=== PATIENT | female | born 1995 | race Hispanic/Latino ===

== ENCOUNTER 2022-11-19 20:09 | Inpatient (IN) | payer OTHER ==
[~2022-11-19] VITALS: Ht 162.6 cm; Wt 95.3 kg
[2022-11-19 21:03] VITALS: BP 136/83
[2022-11-19] MEDS ORDERED: MICARDIS40 MG PO (22:03)
[2022-11-19] MEDS ORDERED: JENCYCLA0.35 MG PO (22:05)
[2022-11-19] MEDS ORDERED: HYDRALAZINE HCL 20 MG/ML VIAL IV PRN (22:15)
[2022-11-19] MEDS ORDERED: DOCUSATE SODIUM 100 MG CAP PO PRN (22:15)
[2022-11-19] MEDS ORDERED: HYDROCODONE/APAP 5MG-325MG TAB PO PRN (22:15)
[2022-11-19] MEDS ORDERED: BENZONATATE 100 MG CAP PO PRN (22:15)
[2022-11-19] MEDS ORDERED: LIDOCAINE 4% PATCH TP PRN (22:15)
[2022-11-19] MEDS ORDERED: POTASSIUM CHLORIDE 20 MEQ TAB CR PO PRN (22:15)
[2022-11-19] MEDS ORDERED: MELATONIN 5 MG TABLET PO PRN (22:15)
[2022-11-19] MEDS ORDERED: ALBUTEROL/IPRATROPIUM 3 ML NEB NEB PRN (22:15)
[2022-11-19] MEDS ORDERED: IBUPROFEN 600 MG TAB PO PRN (22:15)
[2022-11-19] MEDS ORDERED: SIMETHICONE 80 MG CHEW PO PRN (22:15)
[2022-11-19] MEDS ORDERED: DEXTROSE 50% SYRINGE 50 ML IV PRN (22:15)
[2022-11-19] MEDS ORDERED: ONDANSETRON HCL INJ 2MG/ML 2ML 2 MG/ML VIAL IV PRN (22:15)
[2022-11-19] MEDS ORDERED: Morphine 2mg Syringe 2 MG/ML SYR IV PRN (22:15)
[2022-11-19] MEDS ORDERED: DIPHENHYDRAMINE HCL 25 MG CAP PO PRN (22:15)
[2022-11-19 22:28] VITALS: BP 136/83
[2022-11-20] VITALS: BP 128/77
[2022-11-20] MEDS ORDERED: DIPHENHYDRAMINE HCL 25 MG CAP PO PRN (00:15)
[2022-11-20 00:23] LABS: BASOPHILS % 0.2 % (0.0-1.0); EOSINOPHILS % 0.1 % (0.0-6.0); HEMATOCRIT 36.6 % (34.2-44.1); HEMOGLOBIN 11.5 g/dL (12.0-16.0); LYMPHOCYTES # (AUTO) 1.4 (1.0-3.2); LYMPHOCYTES % 7.9 % (18.0-39.1); MEAN CORPUSCULAR HGB CONC 31.4 g/dL (31-35); MEAN CORPUSCULAR VOLUME 95.6 fL (81-99); MONOCYTES # (AUTO) 1.2 (0.2-0.8); MONOCYTES % 6.8 % (4.4-11.3); NEUTROPHILS % 84.5 % (38.7-80.0); PLATELET COUNT 211 x10e3/uL (140-360); RED BLOOD COUNT 3.83 x10e6/uL (3.6-5.1); RED CELL DISTRIBUTION WIDTH 12.7 % (11.7-14.4)
[2022-11-20] MEDS: DEXTROSE 5%/0.9% SOD CHL 1,000 ML IV SCH ×3 (00:24→14:15)
[2022-11-20] MEDS: ACETAMINOPHEN 325 MG TAB PO PRN ×2 (00:27→13:11)
[2022-11-20 00:39] LABS: ALBUMIN 3.2 g/dL (3.5-5.0); CREATININE, SERUM 0.67 mg/dL (0.57-1.11)
[2022-11-20 04:00] VITALS: BP 118/72
[2022-11-20 04:51] LABS: CLARITY,URINE CLOUDY (CLEAR); COLOR,URINE AMBER (YELLOW); KETONES,URINE 2+ (NEGATIVE); LEUKOCYTE ESTERASE ,URINE NEGATIVE (NEGATIVE); NITRITE,URINE NEGATIVE (NEGATIVE); PROTEIN,URINE DIPSTICK 1+ (NEGATIVE); URINE UROBILINOGEN 0.2 mg/dL (0.2 - 1)
[2022-11-20 04:57] LABS: AMORPHOUS SEDIMENT,URINE FEW (FEW); BACTERIA,URINE FEW /HPF; EPITHELIAL CELLS,URINE RARE /LPF; RBC,URINE >50 /HPF (0-5)
[2022-11-20 05:35] LABS: BASOPHILS % 0.1 % (0.0-1.0); EOSINOPHILS % 0.1 % (0.0-6.0); HEMATOCRIT 35.9 % (34.2-44.1); HEMOGLOBIN 10.8 g/dL (12.0-16.0); LYMPHOCYTES # (AUTO) 1.6 (1.0-3.2); LYMPHOCYTES % 10.5 % (18.0-39.1); MEAN CORPUSCULAR HEMOGLOBIN 29.3 pg (28-32); MEAN CORPUSCULAR HGB CONC 30.1 g/dL (31-35); MEAN CORPUSCULAR VOLUME 97.3 fL (81-99); MONOCYTES # (AUTO) 1.2 (0.2-0.8); MONOCYTES % 8.2 % (4.4-11.3); NEUTROPHILS # (AUTO) 11.9 (2.1-6.9); NEUTROPHILS % 80.7 % (38.7-80.0); PLATELET COUNT 201 x10e3/uL (140-360); RED BLOOD COUNT 3.69 x10e6/uL (3.6-5.1); RED CELL DISTRIBUTION WIDTH 13.1 % (11.7-14.4)
[2022-11-20] MEDS: METRONIDAZOLE 500MG/NS 100ML 100 ML IV SCH ×3 (05:39→21:07)
[2022-11-20 06:02] LABS: ANION GAP 13.8 mmol/L (8-16); CALCIUM 7.8 mg/dL (8.4-10.2); CREATININE, SERUM 0.75 mg/dL (0.57-1.11); MAGNESIUM 1.9 MG/DL (1.3-2.1); POTASSIUM 3.8 mmol/L (3.5-5.1)
[2022-11-20] MEDS: PANTOPRAZOLE SOD 40 MG TABEC PO SCH (07:30)
[2022-11-20 07:34] VITALS: BP 115/69
[2022-11-20 07:56] VITALS: BP 115/69
[2022-11-20 11:24] VITALS: BP 110/70
[2022-11-20] MEDS ORDERED: POVIDONE IODINE 0.05% 0.05 % ML PO ONE (12:33)
[2022-11-20] MEDS ORDERED: NEOSTIGMINE 1 MG/ML 10ML VIAL ONE (12:33)
[2022-11-20] MEDS ORDERED: LIDOCAINE HCL 2% LOCAL INJ 5 ML SDV VIAL INJ ONE (12:33)
[2022-11-20] MEDS ORDERED: SEVOFLURANE INHAL SOLN 250 ML PEN BTL ONE (12:33)
[2022-11-20] MEDS ORDERED: ROCURONIUM BROMIDE 10 MG/ML 5ML VIAL IV ONE (12:33)
[2022-11-20] MEDS ORDERED: GLYCOPYRROLATE INJ 0.2 MG/ML VIAL ONE (12:33)
[2022-11-20] MEDS ORDERED: PROPOFOL IV EMULSION 10 MG/ML 20 ML VIAL ONE (12:33)
[2022-11-20] MEDS ORDERED: ONDANSETRON HCL INJ 2MG/ML 2ML 2 MG/ML VIAL ONE (12:33)
[2022-11-20] MEDS ORDERED: DEXAMETHASONE SOD PHOS INJ 4 MG/ML SDV ONE (12:33)
[2022-11-20] MEDS ORDERED: KETOROLAC TROMETHAMINE 30 MG/ML VIAL ONE (12:33)
[2022-11-20] MEDS ORDERED: FENTANYL CITRATE/PF 100MCG/2 ML INJ ONE (13:09)
[2022-11-20] MEDS ORDERED: MIDAZOLAM HCL 2 MG/2 ML VIAL ONE (13:09)
[2022-11-20] MEDS ORDERED: BUPIVACAINE HCL 0.5% INJ 30 ML VIAL INJ ONE (13:52)
[2022-11-20] MEDS ORDERED: KETOROLAC TROMETHAMINE 30 MG/ML VIAL IV PRN (15:30)
[2022-11-20] MEDS ORDERED: HYDROCODONE/APAP 7.5MG-325MG 1 EA TAB PO PRN (15:30)
[2022-11-20] MEDS ORDERED: HYDROMORPHONE 1MG/1ML INJ IV PRN (15:30)
[2022-11-21] MEDS: DEXTROSE 5%/0.9% SOD CHL 1,000 ML IV SCH ×2 (00:40→06:15)
[2022-11-21 04:59] LABS: BASOPHILS % 0.1 % (0.0-1.0); HEMATOCRIT 34.8 % (34.2-44.1); HEMOGLOBIN 10.6 g/dL (12.0-16.0); LYMPHOCYTES # (AUTO) 0.7 (1.0-3.2); LYMPHOCYTES % 3.6 % (18.0-39.1); MEAN CORPUSCULAR HEMOGLOBIN 29.4 pg (28-32); MEAN CORPUSCULAR HGB CONC 30.5 g/dL (31-35); MEAN CORPUSCULAR VOLUME 96.7 fL (81-99); NEUTROPHILS # (AUTO) 17.4 (2.1-6.9); NEUTROPHILS % 90.8 % (38.7-80.0); PLATELET COUNT 195 x10e3/uL (140-360); RED CELL DISTRIBUTION WIDTH 12.6 % (11.7-14.4)
[2022-11-21 05:19] LABS: ANION GAP 13.1 mmol/L (8-16); CALCIUM 8.1 mg/dL (8.4-10.2); CREATININE, SERUM 0.69 mg/dL (0.57-1.11); POTASSIUM 4.1 mmol/L (3.5-5.1)
[2022-11-21] MEDS: METRONIDAZOLE 500MG/NS 100ML 100 ML IV SCH ×3 (05:22→21:38)
[2022-11-21 07:31] VITALS: BP 128/79
[2022-11-21] MEDS: PANTOPRAZOLE SOD 40 MG TABEC PO SCH (08:58)
[2022-11-21] MEDS: TELMISARTAN 40 MG TAB PO SCH (08:59)
[2022-11-21 11:08] VITALS: BP 151/93
[2022-11-21 15:26] VITALS: BP 128/83
[2022-11-21 20:00] VITALS: BP 121/81
[2022-11-21] MEDS: ACETAMINOPHEN 325 MG TAB PO PRN (20:18)
[2022-11-21] MEDS ORDERED: ENOXAPARIN SOD INJ 40 MG/0.4 ML SYR SC STA (20:48)
[2022-11-21 20:59] VITALS: BP 121/81
[2022-11-21] MEDS ORDERED: FUROSEMIDE INJ 10 MG/ML 4 ML VIAL IV ONE (21:00)
[2022-11-22 05:04] LABS: BASOPHILS % 0.1 % (0.0-1.0); EOSINOPHILS % 0.1 % (0.0-6.0); HEMATOCRIT 32.3 % (34.2-44.1); LYMPHOCYTES # (AUTO) 2.5 (1.0-3.2); LYMPHOCYTES % 18.4 % (18.0-39.1); MEAN CORPUSCULAR HEMOGLOBIN 29.5 pg (28-32); MEAN CORPUSCULAR VOLUME 95.3 fL (81-99); MONOCYTES % 6.9 % (4.4-11.3); NEUTROPHILS # (AUTO) 10.2 (2.1-6.9); NEUTROPHILS % 74.2 % (38.7-80.0); PLATELET COUNT 217 x10e3/uL (140-360); RED BLOOD COUNT 3.39 x10e6/uL (3.6-5.1); RED CELL DISTRIBUTION WIDTH 12.8 % (11.7-14.4)
[2022-11-22 05:20] LABS: ANION GAP 14.2 mmol/L (8-16); CREATININE, SERUM 0.63 mg/dL (0.57-1.11); POTASSIUM 3.2 mmol/L (3.5-5.1)
[2022-11-22] MEDS: METRONIDAZOLE 500MG/NS 100ML 100 ML IV SCH ×2 (05:22→13:08)
[2022-11-22 08:00] VITALS: BP 116/76
[2022-11-22] MEDS: PANTOPRAZOLE SOD 40 MG TABEC PO SCH (08:28)
[2022-11-22] MEDS: TELMISARTAN 40 MG TAB PO SCH (08:58)
[2022-11-22] MEDS ORDERED: FUROSEMIDE INJ 10 MG/ML 4 ML VIAL IV SCH (09:00)
[2022-11-22] MEDS ORDERED: SODIUM CHLORIDE 0.9% 250ML 250 ML ONE (09:20)
[2022-11-22] MEDS ORDERED: POTASSIUM CHLORIDE 20 MEQ TAB CR PO ONE (09:30)
[2022-11-22 10:05] VITALS: BP 116/76
[2022-11-22 11:44] VITALS: BP 126/83
[2022-11-22 15:40] VITALS: BP 131/79
[2022-11-22] MEDS ORDERED: ENOXAPARIN SOD INJ 60 MG/0.6 ML SYR SC SCH (17:00)
[2022-11-22] MEDS ORDERED: FLAGYL375 MG PO (18:03)
[2022-11-22] MEDS ORDERED: CEFDINIR300 MG PO (18:03)
== END 2022-11-22 18:23 | disposition home or self-care (01) | DRG 854 ==
LOC: MED/SURG2 20:55 → UNDODISIN 21:02
PROVIDERS: ADMIT Internal Medicine; ATTEND Internal Medicine
PROC: 0DTJ4ZZ Resection of Appendix, Percutaneous Endoscopic Approach (ICD-10-PCS; principal; 2022-11-20 14:26)
DX: A41.9 Sepsis, unspecified organism (principal); K35.891 Other acute appendicitis without perforation, with gangrene; E66.01 Morbid (severe) obesity due to excess calories; I95.9 Hypotension, unspecified; I10 Essential (primary) hypertension; N83.201 Unspecified ovarian cyst, right side; Z68.36 Body mass index [BMI] 36.0-36.9, adult; Z79.3 Long term (current) use of hormonal contraceptives; Z79.899 Other long term (current) drug therapy; Z86.79 Personal history of other diseases of the circulatory system; Z88.0 Allergy status to penicillin
CPT/HCPCS: 36415; 80048; 80053; 81001; 83605; 83735; 84702; 85025; 87040; 87086; 88304; 94799; 96360; 99252; J0692; J1100; J1650; J1885; J1940; J2001; J2250; J2405; J2710; J3010; J7042; J7050